=== PATIENT | female | born 2000 | race African-American/Black ===

== ENCOUNTER 2025-04-04 18:44 | Inpatient (IN) | payer MEDICAID ==
[2025-04-04] MEDS ORDERED: Nalbuphine 10 MG/1 ML Vial IVPUSH PRN (18:53)
[2025-04-04] MEDS ORDERED: Sodium Chloride 0.9% 10 ML Syringe FLUSH PRN (18:53)
[2025-04-04] MEDS ORDERED: Ondansetron 4 MG/2 ML SDV IVPUSH PRN (18:53)
[2025-04-04] MEDS ORDERED: Oxytocin/0.9 % Sodium Chloride 30 UNIT/500 ML BAG IV SCH ×2 (19:00→20:45)
[2025-04-04 19:11] LABS: BASOPHILS ABSOLUTE AUTO 0.0 K/mm3 (0.0-0.2); BASOPHILS PERCENT AUTO 0.2 % (0.0-1.0); EOSINOPHILS ABSOLUTE AUTO 0.2 K/mm3 (0.0-0.4); EOSINOPHILS PERCENT AUTO 2.7 % (0.0-6.0); IMMATURE GRAN ABSOLUTE AUTO 0.06 K/mm3 (0.00-0.05); IMMATURE GRAN PERCENT AUTO 0.7 % (0.0-0.4); LYMPHOCYTES ABSOLUTE AUTO 1.7 K/mm3 (1.0-4.8); LYMPHOCYTES PERCENT AUTO 19.3 % (24.0-44.0); MEAN PLATELET VOLUME 11.1 fl (9.4-12.3); MONOCYTES ABSOLUTE AUTO 0.6 K/mm3 (0.0-0.8); MONOCYTES PERCENT AUTO 7.4 % (0.0-8.0); NEUTROPHILS ABSOLUTE AUTO 6.0 K/mm3 (1.8-7.7); NEUTROPHILS PERCENT AUTO 69.7 % (41.0-71.0); NRBC ABSOLUTE 0.00 (0.00-0.02); NRBC PERCENT 0.0 % (0.0-0.2); PLATELET COUNT,PLT 239 K/mm3 (150-400); RED BLOOD CELL COUNT 3.91 M/mm3 (4.10-5.30); WHITE BLOOD CELL COUNT,WBC 8.65 K/mm3 (3.9-11.3)
[2025-04-04] MEDS: Lactated Ringers 1,000 ML IV SCH (19:20)
[2025-04-04] MEDS ORDERED: diphenhydrAMINE 50 MG/ML SDV IVPUSH PRN (19:22)
[2025-04-04] MEDS ORDERED: ePHEDrine 50 MG/ML SDV IVPUSH PRN (19:22)
[2025-04-04] MEDS: Bupivacaine/fentaNYL/NS 100 ML Bag EPIDUR PRN (19:32)
[2025-04-04] MEDS: fentaNYL 100 MCG/2 ML SDV EPIDUR PRN (19:32)
[2025-04-04] MEDS: Sodium Chloride 0.9% 10 ML Syringe FLUSH SCH (21:11)
[2025-04-04] MEDS ORDERED: Witch Hazel Medicated Pads 40/Jar TOP PRN (23:17)
[2025-04-04] MEDS ORDERED: Benzocaine/Menthol 20%-0.5% Spray 78 GM Cannister TOP PRN (23:17)
[2025-04-05] MEDS: Oxytocin/0.9 % Sodium Chloride 30 UNIT/500 ML BAG IV SCH (01:25)
== END 2025-04-06 13:51 | disposition home or self-care (01) | DRG 807 ==
LOC: JD.OBCHECK 18:44 → JD.OB 18:53 → JD.OBCHECK 18:54 → OBSVTOIN 22:04 → JD.OB 22:05
PROVIDERS: ADMIT Obstetrics & Gynecology; ATTEND Obstetrics & Gynecology
PROC: 10E0XZZ Delivery of Products of Conception, External Approach (ICD-10-PCS; principal; 2025-04-04)
PROC: 3E0R3BZ Introduction of Anesthetic Agent into Spinal Canal, Percutaneous Approach (ICD-10-PCS; 2025-04-04)
PROC: 00HU33Z Insertion of Infusion Device into Spinal Canal, Percutaneous Approach (ICD-10-PCS; 2025-04-04)
PROC: 4A1HXCZ Monitoring of Products of Conception, Cardiac Rate, External Approach (ICD-10-PCS; 2025-04-04)
DX: O99.824 Streptococcus B carrier state complicating childbirth (principal); Z37.0 Single live birth; Z3A.39 39 weeks gestation of pregnancy
CPT/HCPCS: 36415; 51701; 59025; 59409; 85025; 86592; 86850; 86900; 86901; A9270-GY; C1758; J0290; J0665; J3010; J3490; J7120; J7999